=== PATIENT | male | born 1990 ===

== ENCOUNTER 2017-02-21 22:26 | Emergency (ER) | payer SELFPAY ==
[2017-02-21 22:26] VITALS: BMI 25.9
[2017-02-21 22:43] VITALS: BP 130/73; PULSE 89; RESP 16; TEMP 98; O2SAT 100
--- NOTE | 2017-02-21 23:01 | ED PDOC ---
HPI: General Adult Time Seen by Provider: 02/21/17 22:45 Chief Complaint (Nursing): Finger,Hand,&Wrist History Per: Patient Additional Complaint(s): Pt. works as a operation specialist in an apartment building and states he went to answer a noise complaint and was bitten by the tenant's dog on his L index finger yesterday at 1930. States that he cleaned wound immediately. He was instructed by his engineering design supervisor to come to ED for further evaluation. Pt. was unable to get dog immunization status. Pt. states he has seen dog in the building multiple times in the past. Pt. does have dog owners phone number and address. Denies numbness, tingling. Past Medical History Reviewed: Historical Data, Nursing Documentation, Vital Signs Vital Signs: Last Vital Signs Temp 98.0 F 02/21/17 22:41 Pulse 89 02/21/17 22:41 Resp 16 02/21/17 22:41 BP 130/73 02/21/17 22:41 Pulse Ox 100 02/21/17 23:20 - Medical History PMH: Asthma (CHILDHOOD ASTHMA) Denies: Chronic Kidney Disease - Family History Family History: States: No Known Family Hx - Home Medications Home Medications: Ambulatory Orders Medication Instructions Recorded Amoxicillin/Clavulanate [Augmentin 1 tab PO TID #30 tab 02/21/17 500 MG-125 MG] - Allergies Allergies/Adverse Reactions: Allergies Allergy/AdvReac Type Severity Reaction Status Date / Time No Known Allergies Allergy Verified 04/20/14 09:13 Review of Systems ROS Statement: Except As Marked, All Systems Reviewed And Found Negative Physical Exam - Physical Exam Appears: Positive for: Well, Non-toxic, No Acute Distress Skin: Positive for: Normal Color, Warm. Negative for: Rash Pulses-Radial (L): 2+ Extremity: Positive for: Normal ROM (FROM actively of L 2nd digit), Capillary Refill (< 2 seconds of L 2nd digit), Other (L palmar surface of L 2nd digit on middle phalanx extending proximally to proximal phalanx with very superficial non-gaping linear laceration and superficial puncture wound on L thumb without surrounding erythema or discharge) Neurologic/Psych: Positive for: Alert, Oriented - ECG O2 Sat by Pulse Oximetry: 100 - Progress ED Course And Treament: Wound irrigated heavily with NS. DSD applied. Augmentin PO ordered. Disposition - Clinical Impression Clinical Impression: Dog bite - Patient ED Disposition Is Patient to be Admitted: No - Disposition Referrals: [facility] [Outside] [facility] [Outside] Disposition: Routine/Home Disposition Time: 22:45 Condition: STABLE Additional Instructions: Follow up with [facility] in 2 days for wound check. Prescriptions: Amoxicillin/Clavulanate [Augmentin 500 MG-125 MG] 1 tab PO TID #30 tab Instructions: Animal Bite (ED), Acute Wound Care (ED) Forms: [employer] (Frisian), [facility] ED School/Work Excuse Print Language: GERMAN
[2017-02-21] MEDS ORDERED: Amoxicillin-Clav 500-125 mg Tab PO STA (23:19)
[2017-02-21] MEDS ORDERED: Amoxicillin-Clav 875-125 mg Tab PO ONE (23:23)
[2017-02-21] MEDS ORDERED: Amoxicillin-Clav 875-125 mg Tab PO STA (23:24)
== END 2017-02-21 23:51 | disposition home or self-care (01) ==
LOC: H.ER 22:26
DX: S61.231A Puncture wound without foreign body of left index finger without damage to nail, initial encounter (principal); W54.0XXA Bitten by dog, initial encounter; Y99.0 Civilian activity done for income or pay; J45.909 Unspecified asthma, uncomplicated